=== PATIENT | female | born 2000 | race Caucasian/White ===

== ENCOUNTER 2024-04-24 20:20 | Emergency (ER) | payer SELFPAY ==
[2024-04-24] MEDS ORDERED: Acetaminophen 500 MG TAB ONE (20:57)
[2024-04-24] MEDS ORDERED: Ondansetron PF 4 MG/2 ML Vial ONE (20:57)
[2024-04-24 21:04] LABS: #Basophils 0.05 10x3/uL (0.0-0.2); %Basophils 0.5 % (0.0-1.0); %Eosinophils 0.3 % (0.0-10.0); %Lymphocytes 22.6 % (21.0-51.0); %Monocytes 12.4 % (0.0-10.0); %Neutrophils 63.6 % (42.0-75.0); Hematocrit 41.2 % (36.0-47.0); Hemoglobin 14.6 g/dL (12.0-16.0); Mean Corpuscular HGB CONC 35.4 g/dL (32.0-36.0); Mean Corpuscular Hemoglobin 27.1 pg (27.0-31.0); Mean Corpuscular Volume 76.6 fL (78.0-98.0); Mean Platelet Volume 10.7 fL (7.4-10.4); Platelet Count 306 10x3/uL (130-400); RBC Distribution Width 13.2 % (11.5-14.5); Red Blood Cell (RBC) Count 5.38 mill/uL (4.20-5.40)
[2024-04-24 21:29] LABS: ALT (SGPT) 654 U/L (8-55); AST (SGOT) 203 U/L (5-34); Albumin 3.7 g/dL (3.5-5.0); Alkaline Phosphatase 155 U/L (40-110); Anion Gap 19 mmol/L (10-20); BUN (Urea Nitrogen) 5 mg/dL (7.0-18.7); Bilirubin, Total 1.8 mg/dL (0.2-1.2); Calc. Creatinine Clearance 0 mL/min (70-130); Calcium 9.6 mg/dL (7.8-10.44); Carbon Dioxide 17 mmol/L (22-29); Chloride 101 mmol/L (98-107); Estimated GFR 133; Globulin 4.1 g/dL (2.4-3.5); Glucose 87 mg/dL (70-105); Potassium 2.2 mmol/L (3.5-5.1); Protein, Total 7.8 g/dL (6.0-8.3); Sodium 135 mmol/L (136-145)
[2024-04-24 21:49] LABS: Magnesium 1.6 mg/dL (1.6-2.6)
[2024-04-24] MEDS ORDERED: Potassium Chloride 20 MEQ TAB ONE (22:21)
[2024-04-24] MEDS ORDERED: Potassium Chloride 20 MEQ (100 mL) BAG ONE (22:22)
[2024-04-24 22:54] LABS: Bacteria/HPF Rare-Few HPF (None Seen); Bilirubin 1+ (Negative); Blood, Urine Negative (Negative); CAUTI Indications for Culture Pregnancy; Clarity Turbid (Clear); Glucose, Urine (Dipstick) Normal (Negative); Ketone, Urine Greater than 150 mg/dL (Negative); Leukocyte 250 Leu/uL (Negative); Nitrite Negative (Negative); Protein, Urine (Dipstick) 100 mg/dL (Neg-Trace); RBC/HPF 0-3 HPF (0-3); Specific Gravity, Urine 1.029 (1.002-1.036); Urobilinogen 6 mg/dL (Less than 2); pH, Urine 6.5 (5.0-9.0)
[2024-04-24 22:56] LABS: Urine Culture Reflex Yes Yes
[2024-04-24] MEDS ORDERED: Calcium Carbonate 500 MG ChewTAB ONE (23:27)
[2024-04-25] MEDS ORDERED: Potassium Chloride 20 MEQ (100 mL) BAG ONE (00:46)
== END 2024-04-25 03:47 | disposition home or self-care (01) ==
LOC: ERS 20:20
DX: O21.9 Vomiting of pregnancy, unspecified (principal); O23.41 Unspecified infection of urinary tract in pregnancy, first trimester; N39.0 Urinary tract infection, site not specified; O99.891 Other specified diseases and conditions complicating pregnancy; R79.89 Other specified abnormal findings of blood chemistry; E87.6 Hypokalemia; Z3A.12 12 weeks gestation of pregnancy
CPT/HCPCS: 76705; 76856; 80053; 81001; 83735; 84702; 85025; 87086; 87428; 96361; 96365; 96366; 96375; J2405; J3480

== ENCOUNTER 2024-04-30 16:05 | Emergency (ER) | payer MEDICAID, SELFPAY | END 2024-04-30 18:09 | disposition left against medical advice (07) | LOC: ERS 16:05 | DX: Z53.21 Procedure and treatment not carried out due to patient leaving prior to being seen by health care provider (principal) ==